=== PATIENT | male | born 1995 | race Caucasian/White ===

== ENCOUNTER 2017-02-23 17:12 | Emergency (ER) | payer OTHER ==
[~2017-02-23] VITALS: Ht 195.6 cm; Wt 113.4 kg
[2017-02-23 17:13] VITALS: BP_SYST 127
[2017-02-23 18:27] VITALS: BP_SYST 117
== END 2017-02-23 18:27 | disposition home or self-care (01) ==
LOC: SED 17:12
DX: S40.211A Abrasion of right shoulder, initial encounter (principal); W21.89XA Striking against or struck by other sports equipment, initial encounter; Y93.61 Activity, american tackle football; Y92.89 Other specified places as the place of occurrence of the external cause; Y99.8 Other external cause status
CPT/HCPCS: 99281